=== PATIENT | male | born 1940 | race Caucasian/White ===

== ENCOUNTER → 2024-07-22 | Outpatient (CLI) | payer MEDICARE, OTHER ==
[~2024-07-22] VITALS: Ht 172.7 cm; Wt 86.0 kg
[~2024-07-22] MED LIST: ACETAMINOPHEN500 M5 PO; ATIVAN0.5 MG PO; BUMETANIDE2 M1 PO; CIPRO500 M1 PO; CLOPIDOGREL PO; DOXYCYCLINE HY100 M5 PO; GOOD SENSE ASPI81 M1 PO; Lidocaine 2% Jelly 5 GM TUBE TOP ONE; NORVASC 10MG10 MG PO; OXYCODONE HYDROC5 M1 PO; PRAVASTATIN SOD40 MG PO; TRAMADOL HCL25 MG PO
[2024-07-22 09:05] VITALS: BP 150/75
--- NOTE | 2024-07-22 09:15 | NUR ---
PATIENT PRESENTS FOR WOUND CARE TO BILATERAL LOWER EXTREMITITIES AND TOES. AMBUALTORY WITH POST OP SHOES ON BILATERAL FEET. DR. FERMIN PCP. DAUGHTERS AT BEDSIDE REPORTING DR. FERMIN REPORTS "MULTIPLE OCCLUSIONS" WITHIN BLE AND DR. 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 NO IMAGING HAS BEEN PERFORMED. PATIENT FINISHED 7 DAYS OF DOXYCYCLINE 07/20/24 AND WAS RESTARTED ON DOXYCYCLINE 100MG BID 07/21/24 FOR CONTINUING LLE CELLULITIS. LIDOCAINE PLACED TO 5TH METAARSAL ON RIGHT FOOT AND 2ND METATARSAL TO LEFT FOOT. CAP REFLL DECREASED BILATERALLY, DOPPLER UTILIZIED TO BILTERAL FEET, PULSES STRONG. DAUGHTER REPORTS RECENT CREATININE LEVEL 3.63 CRP 7.5. CULTURES OBTAINED TO RIGHT 5TH AND LEFT 2ND METATARSAL. PHOTOGRAPHS AND MEASUREMENTS TAKEN. SEE PROVIDERS NOTE. XEROFORM, AQUACEL AG, AND MEPILEX PLACED TO BILATERAL WOUNDS. RECOMMENDED FOR DAILY DRESSING CHANGES, SUPPLIES SENT WITH PATIENT. FOAM PLACED IN POST OP SHOES TO REDUCE PRESSURE. PATIENT SCHEDULED FOR NEXT Thursday07/26/24 AT 3PM. ORDERS OBTAINED FOR IMAGING OF RIGHT 5TH METATARSAL. NEW RX SENT TO PREFERRED PHARMACY. DTRS INSTRUCTED ON DAILY DRSG CHANGES AND SUPPLIES SENT HOME.
--- NOTE | 2024-07-22 10:57 | NUR ---
IMAGING RESULTS SENT TO DR. FERMIN OFFICE AND CLOUDED TO [facility].
--- NOTE | 2024-07-22 11:00 | NUR ---
MRI RECOMMENDED, LISA MOLINA APRN ORDERED.
--- NOTE | 2024-07-25 10:06 | NUR ---
WOULD CULTURE PRELIM GIVEN TO LISA MOLINA APRN.
== END ==
LOC: RAD 08:41 → WOUND 08:41
DX: I73.9 Peripheral vascular disease, unspecified (principal); S81.802D Unspecified open wound, left lower leg, subsequent encounter

== ENCOUNTER → 2024-07-26 | Outpatient (CLI) | payer MEDICARE, OTHER ==
[~2024-07-26] VITALS: Ht 172.7 cm; Wt 86.0 kg
[2024-07-26 15:14] VITALS: BP 150/74
--- NOTE | 2024-07-26 16:30 | NUR ---
PATIENT HERE FOR WOUND CARE TO BIALTERAL LEGS AND TOES. [place] D/C'D. PATIENTS FAMILY REPORTS ARTERIAL ULTRASOUNDS DONE AT [facility] 07/12/24 AND WILL BRING REPORT Thursday07/29/24. SCABBING REMOVED TO RIGHT LOWER EXTREMITIY REVEALING WOUND BED WITH SLOUGH. AREA DEBRIDED BY Sharath MOLINA APRN. WOUND BED TO RLE, RIGHT 5TH TOE, LEFT GREAT TOE, AND LEFT 2ND TOE CLEANSED WITH HIBICLENSE AND DEBRISOFT LOLLI. JET LAVAGE. IODOSORB PLACED IN WOUND BED TO POSTERIOR RIGHT LEG, COVERED WITH AQUACEL AG AND MEPILEX BORDER FOAM. TO ALL TOE WOUND, XEROFOAM, AQUACEL AG, AND MEPILEX BORDER FOAM. LISA MOLINA APRN TO SEND PAIN AND ANXIETY MEDICATION FOR MRI Thursday07/29/24 PATIENT WAS UNABLE TO COMPLETE MRI THIS AM. PATIENT SCHEDULED FOR Thursday07/29/24 FOR DRESSING CHANGE.
== END ==
LOC: WOUND 14:55
DX: I73.9 Peripheral vascular disease, unspecified (principal); S81.802D Unspecified open wound, left lower leg, subsequent encounter
CPT/HCPCS: 18893; 18897; 19064; A6197; A6261

== ENCOUNTER → 2024-07-29 | Outpatient (CLI) | payer MEDICARE, OTHER ==
[~2024-07-29] VITALS: Ht 172.7 cm; Wt 86.0 kg
[~2024-07-29] MED LIST changes: -Lidocaine 2% Jelly 5 GM TUBE TOP ONE
[2024-07-29 16:27] VITALS: BP 153/75
== END ==
LOC: WOUND 15:47
DX: I73.9 Peripheral vascular disease, unspecified (principal); S81.802D Unspecified open wound, left lower leg, subsequent encounter
CPT/HCPCS: 18893; 18897; A6197

== ENCOUNTER → 2024-07-29 | Outpatient (CLI) | payer MEDICARE, OTHER | LOC: RAD 07:54 | DX: R60.0 Localized edema (principal); S91.309S Unspecified open wound, unspecified foot, sequela; X58.XXXS Exposure to other specified factors, sequela ==

== ENCOUNTER → 2024-08-02 | Outpatient (CLI) | payer MEDICARE, OTHER ==
[~2024-08-02] VITALS: Ht 172.7 cm; Wt 86.0 kg
[~2024-08-02] MED LIST changes: +Lidocaine 2% Jelly 5 GM TUBE TOP ONE
[2024-08-02 12:03] VITALS: BP 165/72
--- NOTE | 2024-08-02 12:06 | NUR ---
PT HERE FOR WOUND CARE TO RT ANTERIOR MORALES AND 5TH TOE AND GREAT TOE ON RT FOOT, WELL GREAT TOE AND 2ND TOE ON LEFT FOOT. 2% LIDOCAINE APPLIED TO ALL AREAS PRIOR TO DEBRIDEMENT BY Phyllis MOLINA APRN. RT MORALES WOUND IS EVOLVING AND GETTING A LITTE BIGGER AND IS ALSO MORE PAINFUL TODAY. RT GREAT TOE IS DEEPER PURPLE TODAY AND RT 5TH TOE IS MORE MACERATED. UNABLE TO FURTHER ASSESS DUE TO PAIN. ALL WOUNDS CLEANED WITH HIBICLENS USING A DEBRISOFT LOLLY AND JET LAVAGED WITH STERILE WATER. MEASUREMENTS AND PICS TAKEN TODAY. SEE PROVIDER NOTE FOR MEASUREMENTS. SKIN PREP TO PERIWOUND. IODOSORB, AQUACEL EXTRA AND OPTILOCK AND SOFT ROLL TO RT MORALES. XEROFORM, AUACEL EXTRA AND MEDIPORE TAPE TO TOES. PT HAS APPT FOR OXIMETRY STUDY ON BLE TOMORROW. FAMILY HAS REQUESTED TO GET HOME HEALTH INVOLVED IN PTS WOUND CARE THEY ARE STRUGGLING WITH BEING THERE ALL THE TIME TO MEET HIS INCREASING CARE NEEDS. WE WILL SEND ORDERS FOR HOME HEALTH TO [facility] REQUESTED BY PATIENT AND FAMILY.
== END ==
LOC: WOUND 11:49 → LAB 11:49
DX: S81.801A Unspecified open wound, right lower leg, initial encounter (principal)

== ENCOUNTER → 2024-08-05 | Outpatient (CLI) | payer MEDICARE, OTHER ==
[~2024-08-05] VITALS: Ht 172.7 cm; Wt 86.0 kg
[2024-08-05 15:10] VITALS: BP 152/74
--- NOTE | 2024-08-05 15:13 | NUR ---
PT HERE FOR WOUND CARE TO RT MORALES, RT TOES AND LEFT TOES. DTR STATES PT IS SCHEDULED FOR ANGIOGRAM ON 08/10/24, AND WILL BE IN THE HOSPITAL A COUPLE DAYS. WILL CALL US TO SCHEDULE WOUND CARE APPT. WHEN HE GETS OUT OF THE HOSPITAL. RT MORALES WOUND IS VEY WET TODAY. ORTHO OFFICE PLACED A DIFFERENT DRESSING ON IT 2 DAYS AGO WITH AN ANTIBIOTIC OINTMENT. 2% LIDOCAINE JELLY APPLIED TO WOUNDS. DEBRIDEMENT TO RT MOARLES BY Phyllis MOLINA APRN. CLEANED WITH HIBICLENS AND DEBRISOFT LOLLY .jET LAVAGED WITH STERILE WATER. APPLIED IODOSORB TO RT MORALES WOUNDBED AND COVERED WITH AQUACEL EXTRA, OPTILOCK, SOFT ROLL GAUZE. XEROFORM AND AQUACEL EXTRA APPLIED TO OPEN WOUNDS ON TOES OF BOTH FEET. SECURED WITH MEDIPORE TAPE. GAVE PT A NEW PAIR OF HOSPITAL SOCKS AND PUT THE SURGICAL SHOES BACK ON BOTH FEET. PT LEAVES AMBULATORY WITH DAUGHTER. DAUGHTER STATES THEY HAVE NOT HEARD ANYTHING FROM [facility]. SHE WILL CALL THEM TODAY.
== END ==
LOC: WOUND 14:49
DX: I73.9 Peripheral vascular disease, unspecified (principal); S81.802D Unspecified open wound, left lower leg, subsequent encounter
CPT/HCPCS: 18897

== ENCOUNTER → 2024-08-17 | Outpatient (CLI) | payer MEDICARE, OTHER ==
[~2024-08-17] VITALS: Ht 172.7 cm; Wt 86.0 kg
[2024-08-17 14:37] VITALS: BP 160/81
--- NOTE | 2024-08-17 15:20 | NUR ---
PT HERE FOR WOUND CARE TO [facility]. REMOVED DRESSINGS ON RT MORALES AND RT FOOT AND LEFT FOOT. WOUNDS ARE ALL QUITE WET TODAY WITH MACERATION NOTED ON RT 5TH TOE AND RT GREAT TOE. TOES ON RT FOOT WITH MORE PINK/RED TODAY, VERSUS DARK PURPLE/BLACK APPEARANCE. HAD REVASCULARIZATION 1 WEEK AGO IN RT LEG. 2ND TOE ON LEFT FOOT CONTINUES TO BE DARK IN APPEARANCE AND HAS MINIMAL DRAINAGE. SEE PROVIDER NOTE FROM Phyllis MOLINA APRN FOR MEASUREMENTS. APPLIED IODOSORB, AQUACEL EXTRA, AND OPTILOCK AND SOFT ROLL TO RT MORALES WOUND. APPLIED IODOSORB, AQUACEL EXTRA AND MEPILEX BORDER FOAM TO RT GREAT TOE. APPLIED IODOSORB, AQUACEL EXTRA AND MEDIPORE TAPE TO RT 5TH TOE. APPLIED AQUACEL EXTRA, MEDIPORE TAPE TO LEFT 2ND TOE. SKIN PREPPED AROUND THE OUTER EDGES OF ALL WOUNDS PRIOR TO APPLYING DRESSINGS. ORDERS, SUPPLIES AND INSTRUCTIONS SENT WITH PT FOR HOME HEALTH NURSE. THEY WILL CONTINUE DOING WOUND CARE ON THU AND [place] WITH PT COMING TO WOUND CLINIC ON [place].
== END ==
LOC: WOUND 13:59
DX: I73.9 Peripheral vascular disease, unspecified (principal); S81.802D Unspecified open wound, left lower leg, subsequent encounter
CPT/HCPCS: 18897; 19064; 19899; A6261

== ENCOUNTER → 2024-09-28 | Outpatient (CLI) | payer MEDICARE, OTHER ==
[~2024-09-28] MED LIST changes: +CALCITRIOL0.25 MCG PO; -Lidocaine 2% Jelly 5 GM TUBE TOP ONE
== END ==
LOC: LAB 14:00
DX: S91.105A Unspecified open wound of left lesser toe(s) without damage to nail, initial encounter (principal)